=== PATIENT | female | born 1970 | race Caucasian/White ===

== ENCOUNTER → 2023-07-05 12:39 | Outpatient (BNVA) | payer OTHER, SELFPAY | PROVIDERS: Visit Provider Nurse Practitioner Family | DX: J02.9 Acute pharyngitis, unspecified (principal); J02.8 Acute pharyngitis due to other specified organisms; B97.89 Other viral agents as the cause of diseases classified elsewhere; B34.9 Viral infection, unspecified | CPT/HCPCS: 87071; 87880 ==